=== PATIENT | male | born 1975 | race Caucasian/White ===

== ENCOUNTER 2020-05-26 14:26 | Inpatient (IN) ==
[2020-05-26] MEDS ORDERED: *HR* LORazepam 2 MG/ML VIAL IVP ONE (14:36)
[2020-05-26] MEDS ORDERED: 0.9 % Sodium Chloride 1,000 ML IVC ONE (14:37)
[2020-05-26 15:34] LABS: Hematocrit 39.2 % (37.5-50.1); Mean Corpuscular HGB Conc 33.2 g/dL (31.6-35.5); Mean Corpuscular Hemoglobin 34.3 pg (28.0-33.3); Mean Corpuscular Volume 103.4 fL (83.0-100.0); Mean Platelet Volume 9.1 fL (9.4-12.4); Platelet Count 283 K/mcL (140-400); Red Blood Count 3.79 M/mcL (4.19-5.50); Red Cell Distribution Width 14.3 % (11.5-14.5); White Blood Count 8.5 K/mcL (4.3-11.1)
[2020-05-26 16:40] LABS: Alanine Aminotransferase 36 Units/L (7-52); Albumin 4.2 g/dL (3.5-5.7); Albumin/Globulin Ratio 1.5 (1.1-2.2); Alkaline Phosphatase 87 Units/L (34-104); Aspartate Amino Transferase 61 Units/L (13-39); BUN/Creatinine Ratio 6 (6-26); Bilirubin,Direct 0.2 mg/dL (0.0-0.2); Bilirubin,Indirect 0.8 mg/dL (0.0-1.0); Blood Urea Nitrogen 4 mg/dL (6-20); Calcium 8.9 mg/dL (8.6-10.3); Carbon Dioxide 18 mEq/L (23-29); Chloride 97 mEq/L (98-107); Ethanol < 10 mg/dL (Less than 10); Globulin 2.8 g/dL (2.4-3.5); Glucose 122 mg/dL (70-105); Lipase 99 Units/L (11-82); Osmolality,Calculated 278 (280-300); Potassium 3.3 mEq/L (3.5-5.1); Sodium 135 mEq/L (136-145); eGFR For African Americans > 60 (> 60); eGFR For Non-African Americans > 60 (> 60)
[2020-05-26] MEDS ORDERED: *HR* HYDROcodone/Acet 5/325 mg TABLET PO PRN (16:56)
[2020-05-26] MEDS ORDERED: Ondansetron 4 MG/2 ML VIAL IVP PRN (16:56)
[2020-05-26] MEDS ORDERED: Naloxone 0.4 MG/ML INJ IVP PRN (16:56)
[2020-05-26] MEDS ORDERED: *HR* LORazepam 2 MG/ML VIAL IVP PRN ×2 (16:59→17:01)
[2020-05-26] MEDS ORDERED: *HR* Labetalol 20 MG/4 ML SYRINGE IVP PRN (17:03)
[2020-05-26] MEDS: *HR* LORazepam 2 MG/ML VIAL IVP PRN (19:37)
[2020-05-26] MEDS: Thiamine (B-1) 100 MG, Folic Acid 1 MG, MVI, adult with vitamin K 10 ML in 0.9 % Sodi... IVPB SCH (19:37)
[2020-05-26] MEDS: Metoprolol XL (24 HR) Succ 25 MG TAB.ER.24H PO SCH (19:38)
[2020-05-26] MEDS: *HR* Heparin 5,000 UNIT/ML VIAL SQ SCH (21:03)
[2020-05-26 23:53] LABS: Amphetamine Screen,Urine Negative ng/mL (Cutoff=1000); Barbiturate Screen,Urine Negative ng/mL (Cutoff=200); Benzodiazepines Screen,Urine Negative ng/mL (Cutoff=200); Cannabinoid Screen,Urine Negative ng/mL (Cutoff = 50); Cocaine Screen,Urine Negative ng/mL (Cutoff= 300); Opiate Screen,Urine Negative ng/mL (Cutoff=300); Phencyclidine Screen,Urine Negative ng/mL (Cutoff=25)
[2020-05-27] MEDS: *HR* LORazepam 2 MG/ML VIAL IVP PRN ×4 (01:45→21:41)
[2020-05-27] MEDS: *HR* Heparin 5,000 UNIT/ML VIAL SQ SCH ×3 (05:24→21:41)
[2020-05-27 06:46] LABS: Hematocrit 38.8 % (37.5-50.1); Hemoglobin 12.7 g/dL (12.9-16.9); Mean Corpuscular HGB Conc 32.7 g/dL (31.6-35.5); Mean Corpuscular Hemoglobin 33.3 pg (28.0-33.3); Mean Corpuscular Volume 101.8 fL (83.0-100.0); Mean Platelet Volume 9.5 fL (9.4-12.4); Platelet Count 265 K/mcL (140-400); Red Blood Count 3.81 M/mcL (4.19-5.50); Red Cell Distribution Width 14.1 % (11.5-14.5); White Blood Count 7.5 K/mcL (4.3-11.1)
[2020-05-27 07:03] LABS: INR 1.1
[2020-05-27 07:06] LABS: Activated Partial Thrombo Time 31.4 Seconds (26.0-36.0)
[2020-05-27 07:17] LABS: BUN/Creatinine Ratio 6 (6-26); Blood Urea Nitrogen 3 mg/dL (6-20); Calcium 8.5 mg/dL (8.6-10.3); Carbon Dioxide 23 mEq/L (23-29); Chloride 101 mEq/L (98-107); Glucose 78 mg/dL (70-105); Magnesium 1.8 mg/dL (1.6-2.6); Osmolality,Calculated 277 (280-300); Phosphorous 2.7 mg/dL (2.7-4.5); Potassium 3.1 mEq/L (3.5-5.1); Sodium 136 mEq/L (136-145); eGFR For African Americans > 60 (> 60); eGFR For Non-African Americans > 60 (> 60)
[2020-05-27] MEDS: Folic Acid 1 MG TABLET PO SCH (08:25)
[2020-05-27] MEDS: Thiamine (B-1) 100 MG TABLET PO SCH (08:25)
[2020-05-27] MEDS: Vitamin B Complex/Vit C/Vit E 1 EACH TABLET PO SCH (08:25)
[2020-05-27] MEDS: Metoprolol XL (24 HR) Succ 25 MG TAB.ER.24H PO SCH (08:25)
[2020-05-27] MEDS: predniSONE 10 MG TABLET PO SCH (13:46)
[2020-05-27] MEDS: Thiamine (B-1) 100 MG, Folic Acid 1 MG, MVI, adult with vitamin K 10 ML in 0.9 % Sodi... IVPB SCH (18:10)
[2020-05-28] MEDS: *HR* LORazepam 2 MG/ML VIAL IVP PRN ×2 (04:24→08:26)
[2020-05-28] MEDS: *HR* Heparin 5,000 UNIT/ML VIAL SQ SCH (05:20)
[2020-05-28 07:22] VITALS: BP 145/87
[2020-05-28] MEDS: Folic Acid 1 MG TABLET PO SCH (08:02)
[2020-05-28] MEDS: Vitamin B Complex/Vit C/Vit E 1 EACH TABLET PO SCH (08:02)
[2020-05-28] MEDS: Thiamine (B-1) 100 MG TABLET PO SCH (08:02)
[2020-05-28] MEDS: predniSONE 10 MG TABLET PO SCH (08:02)
[2020-05-28] MEDS: Metoprolol XL (24 HR) Succ 25 MG TAB.ER.24H PO SCH (08:02)
[2020-05-28 09:04] LABS: BUN/Creatinine Ratio 6 (6-26); Blood Urea Nitrogen 3 mg/dL (6-20); Carbon Dioxide 22 mEq/L (23-29); Chloride 104 mEq/L (98-107); Glucose 95 mg/dL (70-105); Magnesium 1.7 mg/dL (1.6-2.6); Osmolality,Calculated 266 (280-300); Phosphorous 2.4 mg/dL (2.7-4.5); Sodium 130 mEq/L (136-145); eGFR For African Americans > 60 (> 60); eGFR For Non-African Americans > 60 (> 60)
== END 2020-05-28 10:51 | disposition home or self-care (01) | DRG 775 ==
LOC: EMEROOARM 14:26 → 2ANU 14:26 → SUATTDRO 17:11 → 2ANU 18:34
PROVIDERS: ADMIT Internal Medicine; ATTEND Internal Medicine

== ENCOUNTER 2020-07-27 18:00 | Inpatient (IN) ==
[2020-07-27] MEDS ORDERED: Folic Acid 1 MG in 0.9 % Sodium Chloride 50 ML IVPB ONE (18:11)
[2020-07-27] MEDS ORDERED: Thiamine (B-1) 100 MG in 0.9 % Sodium Chloride 50 ML IVPB ONE (18:11)
[2020-07-27] MEDS ORDERED: 0.9 % Sodium Chloride 1,000 ML IVC ONE ×2 (18:11→18:16)
[2020-07-27] MEDS ORDERED: *HR* LORazepam 2 MG/ML VIAL IVP ONE ×2 (18:11→20:46)
[2020-07-27] MEDS ORDERED: Thiamine (B-1) 100 MG, Folic Acid 1 MG in 0.9 % Sodium Chloride 50 ML IVPB STA (18:20)
[2020-07-27 18:34] LABS: Prothrombin Time 11.8 Seconds (9.4-12.1)
[2020-07-27 18:50] LABS: VBG HCO3 26 mEq/L (21-27); VBG PCO2 37 mmHg (41-51); VBG PH 7.45 pH Units (7.32-7.42); VBG PO2 121 mmHg (25-50)
[2020-07-27 19:09] LABS: Acetaminophen < 10 mcg/mL (10-20); Alanine Aminotransferase 37 Units/L (7-52); Albumin 4.6 g/dL (3.5-5.7); Albumin/Globulin Ratio 1.4 (1.1-2.2); Alkaline Phosphatase 122 Units/L (34-104); Aspartate Amino Transferase 75 Units/L (13-39); BUN/Creatinine Ratio 8 (6-26); Bilirubin,Direct 0.4 mg/dL (0.0-0.2); Bilirubin,Indirect 1.7 mg/dL (0.0-1.0); Bilirubin,Total 2.1 mg/dL (0.3-1.0); Blood Urea Nitrogen 6 mg/dL (6-20); Calcium 9.8 mg/dL (8.6-10.3); Carbon Dioxide 25 mEq/L (23-29); Chloride 93 mEq/L (98-107); Ethanol < 10 mg/dL (Less than 10); Globulin 3.2 g/dL (2.4-3.5); Glucose 126 mg/dL (70-105); Lipase 70 Units/L (11-82); Osmolality,Calculated 277 (280-300); Phosphorous 3.8 mg/dL (2.7-4.5); Potassium 3.7 mEq/L (3.5-5.1); Salicylate < 2.5 mg/dL (15.0-30.0); Sodium 134 mEq/L (136-145); Total Protein 7.8 g/dL (6.4-8.9); eGFR For African Americans > 60 (> 60); eGFR For Non-African Americans > 60 (> 60)
[2020-07-27 19:38] LABS: Bacteria,Urine Few per hpf (None-Few); Bilirubin,Urine Negative (Negative); Blood,Urine Trace (Negative); Calcium Oxalate Crystals,Urine Present; Clarity,Urine Turbid (Clear); Color,Urine Light-Orange (Yellow); Glucose,Urine (UA) Normal (Normal); Hyaline Casts,Urine Few per lpf (None Seen); Ketones,Urine 150 mg/dL (Negative); Leukocyte Esterase,Urine Negative (Negative); Mucus,Urine Many per lpf (None-Few); Nitrite,Urine Negative (Negative); PH,Urine 6.5 pH Units (5.0-8.0); Protein,Urine 70 mg/dL (Neg-Trace); Specific Gravity,Urine 1.027 (1.010-1.025)
[2020-07-27 19:43] LABS: Amphetamine Screen,Urine Negative ng/mL (Cutoff=1000); Barbiturate Screen,Urine Negative ng/mL (Cutoff=200); Benzodiazepines Screen,Urine Negative ng/mL (Cutoff=200); Cannabinoid Screen,Urine Negative ng/mL (Cutoff = 50); Cocaine Screen,Urine Negative ng/mL (Cutoff= 300); Opiate Screen,Urine Negative ng/mL (Cutoff=300); Phencyclidine Screen,Urine Negative ng/mL (Cutoff=25)
[2020-07-27 20:25] LABS: Basophils % 0.1 %; Eosinophils % 0.1 %; Hematocrit 43.6 % (37.5-50.1); Hemoglobin 14.5 g/dL (12.9-16.9); Immature Granulocytes % 0.5 % (0-4); Lymphocytes # 0.4 K/mcL (0.6-4.6); Lymphocytes % 2.6 %; Mean Corpuscular HGB Conc 33.3 g/dL (31.6-35.5); Mean Corpuscular Hemoglobin 31.6 pg (28.0-33.3); Mean Platelet Volume 9.9 fL (9.4-12.4); Monocytes # 0.7 K/mcL (0.0-1.3); Monocytes % 4.4 %; Neutrophils # 13.9 K/mcL (1.6-8.9); Platelet Count 165 K/mcL (140-400); Red Blood Count 4.59 M/mcL (4.19-5.50); Red Cell Distribution Width 14.1 % (11.5-14.5); Segmented Neutrophils % 92.3 %
[2020-07-27] MEDS ORDERED: *HR* FentaNYL (PF) 100 MCG/2 ML VIAL IVP ONE (20:46)
[2020-07-27] MEDS ORDERED: *HR* Promethazine 25 MG/ML VIAL IVP PRN (22:08)
[2020-07-27] MEDS ORDERED: Naloxone 0.4 MG/ML INJ IVP PRN (22:08)
[2020-07-27] MEDS: 0.9 % Sodium Chloride 1,000 ML IVC SCH (22:56)
[2020-07-27] MEDS ORDERED: *HR* LORazepam 1 MG TABLET PO PRN (23:06)
[2020-07-28] MEDS: Acetaminophen 325 MG TABLET PO PRN (00:10)
[2020-07-28] MEDS: Folic Acid 1 MG TABLET PO SCH ×2 (02:27→07:46)
[2020-07-28] MEDS: *HR* LORazepam 2 MG/ML VIAL IVP PRN ×3 (04:04→22:37)
[2020-07-28] MEDS: 0.9 % Sodium Chloride 1,000 ML IVC SCH (06:09)
[2020-07-28 06:14] LABS: Basophils % 0.2 %; Eosinophils % 0.2 %; Hematocrit 36.3 % (37.5-50.1); Immature Granulocytes % 0.4 % (0-4); Lymphocytes # 0.7 K/mcL (0.6-4.6); Lymphocytes % 7.5 %; Mean Corpuscular HGB Conc 32.5 g/dL (31.6-35.5); Mean Corpuscular Hemoglobin 31.8 pg (28.0-33.3); Mean Corpuscular Volume 97.8 fL (83.0-100.0); Monocytes # 0.4 K/mcL (0.0-1.3); Neutrophils # 8.7 K/mcL (1.6-8.9); Platelet Count 127 K/mcL (140-400); Red Blood Count 3.71 M/mcL (4.19-5.50); Red Cell Distribution Width 14.2 % (11.5-14.5); Segmented Neutrophils % 87.7 %; White Blood Count 9.9 K/mcL (4.3-11.1)
[2020-07-28 06:17] LABS: Hemoglobin 11.8 g/dL (12.9-16.9)
[2020-07-28 06:35] LABS: Magnesium 1.8 mg/dL (1.6-2.6); Phosphorous 2.4 mg/dL (2.7-4.5)
[2020-07-28] MEDS ORDERED: *HR* LORazepam 2 MG/ML VIAL IVP PRN (11:17)
[2020-07-28 12:47] LABS: BUN/Creatinine Ratio 7 (6-26); Blood Urea Nitrogen 4 mg/dL (6-20); Calcium 8.4 mg/dL (8.6-10.3); Carbon Dioxide 24 mEq/L (23-29); Chloride 99 mEq/L (98-107); Glucose 91 mg/dL (70-105); Osmolality,Calculated 268 (280-300); Potassium 3.9 mEq/L (3.5-5.1); Sodium 131 mEq/L (136-145); eGFR For African Americans > 60 (> 60); eGFR For Non-African Americans > 60 (> 60)
[2020-07-28] MEDS: Nicotine 21 MG PATCH.TD24 TD SCH (13:15)
[2020-07-28] MEDS: Thiamine (B-1) 100 MG, Folic Acid 1 MG, MVI, adult with vitamin K 10 ML in 0.9 % Sodi... IVPB SCH (17:35)
[2020-07-29] MEDS: *HR* LORazepam 2 MG/ML VIAL IVP PRN ×3 (02:00→22:01)
[2020-07-29 05:36] LABS: Basophils % 0.1 %; Eosinophils % 1.4 %; Hemoglobin 12.3 g/dL (12.9-16.9); Immature Granulocytes % 0.5 % (0-4); Monocytes % 4.2 %; Red Cell Distribution Width 13.8 % (11.5-14.5)
[2020-07-29 05:37] LABS: Eosinophils # 0.1 K/mcL (0.0-0.6); Immature Platelets 8.1 % (1.1-6.1); Lymphocytes # 0.9 K/mcL (0.6-4.6); Lymphocytes % 11.4 %; Mean Corpuscular HGB Conc 33.2 g/dL (31.6-35.5); Mean Corpuscular Hemoglobin 31.8 pg (28.0-33.3); Mean Corpuscular Volume 95.6 fL (83.0-100.0); Mean Platelet Volume 10.4 fL (9.4-12.4); Monocytes # 0.3 K/mcL (0.0-1.3); Neutrophils # 6.4 K/mcL (1.6-8.9); Red Blood Count 3.87 M/mcL (4.19-5.50); Segmented Neutrophils % 82.4 %; White Blood Count 7.8 K/mcL (4.3-11.1)
[2020-07-29 05:43] LABS: Platelet Count 95 K/mcL (140-400)
[2020-07-29 06:00] LABS: Alanine Aminotransferase 23 Units/L (7-52); Albumin 3.8 g/dL (3.5-5.7); Albumin/Globulin Ratio 1.4 (1.1-2.2); Alkaline Phosphatase 86 Units/L (34-104); Aspartate Amino Transferase 57 Units/L (13-39); BUN/Creatinine Ratio 6 (6-26); Bilirubin,Total 1.3 mg/dL (0.3-1.0); Blood Urea Nitrogen 3 mg/dL (6-20); Calcium 8.8 mg/dL (8.6-10.3); Carbon Dioxide 23 mEq/L (23-29); Chloride 93 mEq/L (98-107); Globulin 2.7 g/dL (2.4-3.5); Glucose 84 mg/dL (70-105); Osmolality,Calculated 268 (280-300); Potassium 3.1 mEq/L (3.5-5.1); Sodium 131 mEq/L (136-145); Total Protein 6.5 g/dL (6.4-8.9); eGFR For African Americans > 60 (> 60); eGFR For Non-African Americans > 60 (> 60)
[2020-07-29] MEDS ORDERED: *HR* LORazepam 2 MG/ML VIAL IVP PRN (08:39)
[2020-07-29] MEDS ORDERED: *HR* Adenosine 6 MG/2 ML VIAL IVP ONE ×3 (09:13)
[2020-07-29] MEDS ORDERED: Perflutren Lipid Microsphere 1.3 ML in 0.9 % Sodium Chloride 8.7 ML IVP PRN ×2 (09:22→12:38)
[2020-07-29] MEDS ORDERED: 0.9 % Sodium Chloride 1,000 ML ONE (09:27)
[2020-07-29] MEDS: DilTIAZem 50 MG/50 ML IV.SOLN IVC SCH ×3 (09:54→18:39)
[2020-07-29] MEDS: Folic Acid 1 MG TABLET PO SCH (11:01)
[2020-07-29] MEDS: 0.9 % Sodium Chloride 1,000 ML IVC SCH ×2 (11:01→19:40)
[2020-07-29] MEDS: Nicotine 21 MG PATCH.TD24 TD SCH (11:03)
[2020-07-29 11:31] LABS: Magnesium 1.6 mg/dL (1.6-2.6)
[2020-07-29 13:34] LABS: Troponin I < 0.03 ng/mL (< 0.04)
[2020-07-29] MEDS ORDERED: *HR* LORazepam 2 MG/ML VIAL IVP STA (13:48)
[2020-07-29 13:58] LABS: Thyroid Stimulating Hormone 2.111 mcIU/mL (0.340-5.600)
[2020-07-29] MEDS ORDERED: *HR* Adenosine 6 MG/2 ML SYRINGE IVP ONE (14:15)
[2020-07-29] MEDS: Dexmedetomidine HCl 400 MCG/100 ML MLS IVC SCH (15:55)
[2020-07-29] MEDS: Thiamine (B-1) 100 MG, Folic Acid 1 MG, MVI, adult with vitamin K 10 ML in 0.9 % Sodi... IVPB SCH (18:20)
[2020-07-30] MEDS: DilTIAZem 50 MG/50 ML IV.SOLN IVC SCH (00:05)
[2020-07-30] MEDS: *HR* LORazepam 2 MG/ML VIAL IVP PRN (01:27)
[2020-07-30] MEDS: 0.9 % Sodium Chloride 1,000 ML IVC SCH ×3 (03:32→22:07)
[2020-07-30] MEDS: Dexmedetomidine HCl 400 MCG/100 ML MLS IVC SCH (03:33)
[2020-07-30 04:57] LABS: Hematocrit 40.5 % (37.5-50.1); Immature Granulocytes % 0.4 % (0-4); Mean Corpuscular Volume 97.4 fL (83.0-100.0); Mean Platelet Volume 10.8 fL (9.4-12.4); Red Blood Count 4.16 M/mcL (4.19-5.50); Red Cell Distribution Width 13.4 % (11.5-14.5)
[2020-07-30 04:59] LABS: Basophils % 0.1 %; Eosinophils # 0.2 K/mcL (0.0-0.6); Eosinophils % 3.3 %; Immature Platelets 8.2 % (1.1-6.1); Lymphocytes # 0.7 K/mcL (0.6-4.6); Lymphocytes % 9.7 %; Mean Corpuscular HGB Conc 32.1 g/dL (31.6-35.5); Mean Corpuscular Hemoglobin 31.3 pg (28.0-33.3); Monocytes # 0.3 K/mcL (0.0-1.3); Monocytes % 4.6 %; Neutrophils # 5.9 K/mcL (1.6-8.9); Platelet Count 105 K/mcL (140-400); Segmented Neutrophils % 81.9 %; White Blood Count 7.2 K/mcL (4.3-11.1)
[2020-07-30 05:18] LABS: BUN/Creatinine Ratio 11 (6-26); Blood Urea Nitrogen 5 mg/dL (6-20); Calcium 8.7 mg/dL (8.6-10.3); Carbon Dioxide 23 mEq/L (23-29); Chloride 103 mEq/L (98-107); Glucose 95 mg/dL (70-105); Magnesium 1.9 mg/dL (1.6-2.6); Osmolality,Calculated 277 (280-300); Potassium 3.6 mEq/L (3.5-5.1); Sodium 135 mEq/L (136-145); eGFR For African Americans > 60 (> 60); eGFR For Non-African Americans > 60 (> 60)
[2020-07-30] MEDS: Folic Acid 1 MG TABLET PO SCH (07:37)
[2020-07-30] MEDS: Nicotine 21 MG PATCH.TD24 TD SCH (07:38)
[2020-07-30] MEDS: Thiamine (B-1) 100 MG, Folic Acid 1 MG, MVI, adult with vitamin K 10 ML in 0.9 % Sodi... IVPB SCH (17:16)
[2020-07-31 01:49] LABS: Basophils % 0.2 %; Eosinophils # 0.2 K/mcL (0.0-0.6); Eosinophils % 3.7 %; Hematocrit 38.6 % (37.5-50.1); Hemoglobin 12.5 g/dL (12.9-16.9); Immature Granulocytes % 0.3 % (0-4); Lymphocytes # 0.7 K/mcL (0.6-4.6); Lymphocytes % 10.7 %; Mean Corpuscular HGB Conc 32.4 g/dL (31.6-35.5); Mean Corpuscular Hemoglobin 31.4 pg (28.0-33.3); Mean Platelet Volume 10.3 fL (9.4-12.4); Monocytes # 0.5 K/mcL (0.0-1.3); Platelet Count 144 K/mcL (140-400); Red Blood Count 3.98 M/mcL (4.19-5.50); Red Cell Distribution Width 13.5 % (11.5-14.5); Segmented Neutrophils % 78.1 %; White Blood Count 6.4 K/mcL (4.3-11.1)
[2020-07-31 02:07] LABS: BUN/Creatinine Ratio 13 (6-26); Blood Urea Nitrogen 6 mg/dL (6-20); Calcium 8.6 mg/dL (8.6-10.3); Carbon Dioxide 20 mEq/L (23-29); Chloride 102 mEq/L (98-107); Glucose 107 mg/dL (70-105); Magnesium 1.7 mg/dL (1.6-2.6); Osmolality,Calculated 272 (280-300); Phosphorous 3.2 mg/dL (2.7-4.5); Potassium 3.6 mEq/L (3.5-5.1); Sodium 132 mEq/L (136-145); eGFR For African Americans > 60 (> 60); eGFR For Non-African Americans > 60 (> 60)
[2020-07-31] MEDS: 0.9 % Sodium Chloride 1,000 ML IVC SCH ×3 (06:19→22:43)
[2020-07-31] MEDS: Nicotine 21 MG PATCH.TD24 TD SCH (08:04)
[2020-07-31] MEDS: Folic Acid 1 MG TABLET PO SCH (08:04)
[2020-07-31] MEDS: *HR* LORazepam 2 MG/ML VIAL IVP PRN (08:10)
[2020-07-31] MEDS ORDERED: *HR* Metoprolol 5 MG/5 ML VIAL IVP ONE (08:24)
[2020-07-31] MEDS: Metoprolol XL (24 HR) Succ 25 MG TAB.ER.24H PO SCH ×3 (08:41→11:23)
[2020-07-31] MEDS ORDERED: Metoprolol XL (24 HR) Succ 25 MG TAB.ER.24H PO ONE (11:15)
[2020-07-31] MEDS: Metoprolol XL (24 HR) Succ 50 MG TAB.ER.24H PO SCH (20:29)
[2020-08-01 04:29] LABS: Basophils % 0.5 %; Eosinophils # 0.1 K/mcL (0.0-0.6); Eosinophils % 2.6 %; Hematocrit 39.1 % (37.5-50.1); Hemoglobin 12.7 g/dL (12.9-16.9); Immature Granulocytes % 0.4 % (0-4); Lymphocytes # 0.8 K/mcL (0.6-4.6); Lymphocytes % 15.3 %; Mean Corpuscular HGB Conc 32.5 g/dL (31.6-35.5); Mean Corpuscular Hemoglobin 31.2 pg (28.0-33.3); Mean Corpuscular Volume 96.1 fL (83.0-100.0); Mean Platelet Volume 9.5 fL (9.4-12.4); Monocytes # 0.9 K/mcL (0.0-1.3); Monocytes % 15.9 %; Neutrophils # 3.6 K/mcL (1.6-8.9); Platelet Count 184 K/mcL (140-400); Red Blood Count 4.07 M/mcL (4.19-5.50); Red Cell Distribution Width 13.7 % (11.5-14.5); Segmented Neutrophils % 65.3 %; White Blood Count 5.5 K/mcL (4.3-11.1)
[2020-08-01 04:49] LABS: BUN/Creatinine Ratio 10 (6-26); Blood Urea Nitrogen 5 mg/dL (6-20); Calcium 8.9 mg/dL (8.6-10.3); Carbon Dioxide 24 mEq/L (23-29); Chloride 103 mEq/L (98-107); Glucose 104 mg/dL (70-105); Magnesium 1.7 mg/dL (1.6-2.6); Osmolality,Calculated 278 (280-300); Phosphorous 3.4 mg/dL (2.7-4.5); Potassium 3.6 mEq/L (3.5-5.1); Sodium 135 mEq/L (136-145); eGFR For African Americans > 60 (> 60); eGFR For Non-African Americans > 60 (> 60)
[2020-08-01] MEDS: 0.9 % Sodium Chloride 1,000 ML IVC SCH (07:51)
[2020-08-01] MEDS: Nicotine 21 MG PATCH.TD24 TD SCH (07:52)
[2020-08-01] MEDS: Metoprolol XL (24 HR) Succ 50 MG TAB.ER.24H PO SCH (07:52)
[2020-08-01] MEDS: Folic Acid 1 MG TABLET PO SCH (07:52)
[2020-08-01] MEDS: Acetaminophen 325 MG TABLET PO PRN (07:57)
[2020-08-01 10:50] VITALS: BP 151/94
== END 2020-08-01 16:26 | disposition home or self-care (01) | DRG 812 ==
LOC: EMEROOARM 18:00 → 3ANU 18:00 → 2NNU 07-29 10:27
PROVIDERS: ADMIT Internal Medicine; ATTEND Internal Medicine